=== PATIENT | female | born 1990 | race Caucasian/White ===

== ENCOUNTER 2016-09-03 13:40 | Observation (INO) | payer BC ==
[~2016-09-03] VITALS: Ht 157.5 cm; Wt 52.2 kg
[2016-09-03] MEDS ORDERED: ONDANSETRON HCL 4 MG/2 ML VIAL IV PRN (14:15)
[2016-09-03] MEDS ORDERED: LACTATED RINGER'S 1,000 ML IV ONE (14:15)
[2016-09-03 15:04] LABS: BUN/Creatinine Ratio 10.7; Calcium 8.3 mg/dL (8.5-10.1); Potassium 3.3 mmol/L (3.5-5.1)
[2016-09-03 15:13] LABS: Urine Bilirubin Negative (Negative); Urine Blood Negative /uL (Negative); Urine Color Yellow (Yellow); Urine Glucose 1+ mg/dL (Normal); Urine Ketone Negative (Negative); Urine Nitrite Negative (Negative); Urine RBC 2 /hpf (0 - 4); Urine Squamous Epithelial Cell MOD /hpf (<5); Urine Urobilinogen Normal (Negative); Urine pH 7.5 (5.0-8.0)
[2016-09-03] MEDS ORDERED: POTASSIUM CHL 20 Meq TABLET PO ONE (15:45)
[2016-09-03] MEDS ORDERED: SOD CHL 0.9%/ KCL 20MEQ 1,000 ML IV SCH (16:45)
[2016-09-03] MEDS ORDERED: PROMETHAZINE HCL 12.5 MG RECT SUPP PR ONE (16:45)
[2016-09-03] MEDS ORDERED: LACTATED RINGER'S 1,000 ML IV SCH (17:15)
[2016-09-03] MEDS ORDERED: POTASSIUM CHL 20MEQ/100ML 100 ML IV ONE (17:45)
== END 2016-09-03 20:07 | disposition home or self-care (01) | DRG 781 ==
LOC: LDRP 13:40
PROVIDERS: ADMIT Specialist; ATTEND Specialist
DX: O21.2 Late vomiting of pregnancy (principal); Z3A.24 24 weeks gestation of pregnancy
CPT/HCPCS: 36415; 59025; 80048; 81001; 81002; 96361; 96374; G0378; J2405; J3480; 96365; 96366

== ENCOUNTER → 2016-10-03 | Outpatient (CLI) | payer BC ==
[2016-10-03 10:27] LABS: Basophils # (auto) 0 uL; Basophils % (auto) 0.3 % (0.0-2.0); Eosinophils # (auto) 0.1 uL; Eosinophils % (auto) 1.2 % (0.0-7.0); Hematocrit 38.5 % (36.0-46.0); Hemoglobin 12.9 g/dL (12.2-16.2); Lymphocytes # (auto) 1.7 uL; Lymphocytes % (auto) 18.1 % (10.0-50.0); Mean Corpuscular Hemoglobin 31.3 pg (28.0-32.0); Mean Corpuscular Hgb Conc. 33.5 g/dL (32.0-36.0); Mean Corpuscular Volume 93.2 fL (80.0-100.0); Mean Platelet Volume 8.3 fL (7.4-10.4); Monocytes # (auto) 0.5 uL; Monocytes % (auto) 5.1 % (0.0-12.0); Neutrophils # (auto) 7.2 uL; Neutrophils % (auto) 75.3 % (37.0-80.0); Platelet Count (auto) 250 10^3/uL (140-450); Red Cell Distribution Width 13.9 % (11.6-16.0); White Blood Cell 9.5 10^3/uL (4.4-10.8)
== END | disposition home or self-care (01) ==
LOC: LAB 09:56
PROVIDERS: ATTEND Obstetrics & Gynecology
DX: O99.810 Abnormal glucose complicating pregnancy (principal); Z34.00 Encounter for supervision of normal first pregnancy, unspecified trimester
CPT/HCPCS: 36415; 82951; 85025

== ENCOUNTER → 2016-10-11 | Outpatient (CLI) | payer BC | END | disposition home or self-care (01) | LOC: LAB 15:34 | PROVIDERS: ATTEND Obstetrics & Gynecology | DX: Z34.80 Encounter for supervision of other normal pregnancy, unspecified trimester (principal); R73.09 Other abnormal glucose | CPT/HCPCS: 36415; 83036 ==

== ENCOUNTER → 2016-11-25 | Outpatient (CLI) | payer BC ==
[2016-11-25 13:15] LABS: Basophils # (auto) 0 uL; Basophils % (auto) 0.2 % (0.0-2.0); Eosinophils # (auto) 0.1 uL; Eosinophils % (auto) 0.6 % (0.0-7.0); Hematocrit 40.1 % (36.0-46.0); Hemoglobin 13.5 g/dL (12.2-16.2); Lymphocytes # (auto) 1.8 uL; Lymphocytes % (auto) 18.9 % (10.0-50.0); Mean Corpuscular Hemoglobin 31.1 pg (28.0-32.0); Mean Corpuscular Hgb Conc. 33.8 g/dL (32.0-36.0); Mean Corpuscular Volume 92.3 fL (80.0-100.0); Monocytes # (auto) 0.5 uL; Monocytes % (auto) 5.3 % (0.0-12.0); Neutrophils # (auto) 7.3 uL; Platelet Count (auto) 244 10^3/uL (140-450); Red Cell Distribution Width 13.1 % (11.6-16.0); White Blood Cell 9.7 10^3/uL (4.4-10.8)
== END | disposition home or self-care (01) ==
LOC: LAB 12:36
PROVIDERS: ATTEND Obstetrics & Gynecology
DX: Z34.00 Encounter for supervision of normal first pregnancy, unspecified trimester (principal); Z11.3 Encounter for screening for infections with a predominantly sexual mode of transmission; N76.0 Acute vaginitis
CPT/HCPCS: 36415; 85025; 86592; 87081

== ENCOUNTER 2016-12-01 20:17 | Observation (INO) | payer BC | END 2016-12-01 22:22 | disposition home or self-care (01) | DRG 781 | LOC: LDRP 20:17 | PROVIDERS: ADMIT Specialist; ATTEND Specialist | DX: O26.893 Other specified pregnancy related conditions, third trimester (principal); Z3A.36 36 weeks gestation of pregnancy | CPT/HCPCS: 59025; 76805; 76818; 81002; G0378 ==

== ENCOUNTER 2016-12-05 19:52 | Observation (INO) | payer BC | END 2016-12-05 21:36 | disposition home or self-care (01) | DRG 782 | LOC: LDRP 19:52 | PROVIDERS: ADMIT Obstetrics & Gynecology; ATTEND Obstetrics & Gynecology | DX: O36.5930 Maternal care for other known or suspected poor fetal growth, third trimester, not applicable or unspecified (principal); Z3A.37 37 weeks gestation of pregnancy; O62.9 Abnormality of forces of labor, unspecified | CPT/HCPCS: 59025; 76818; 81002; G0378; 76817 ==

== ENCOUNTER 2016-12-08 08:04 | Observation (INO) | payer BC | END 2016-12-08 09:40 | disposition home or self-care (01) | DRG 782 | LOC: LDRP 08:04 | PROVIDERS: ADMIT Obstetrics & Gynecology; ATTEND Obstetrics & Gynecology | DX: O62.9 Abnormality of forces of labor, unspecified (principal); Z3A.37 37 weeks gestation of pregnancy | CPT/HCPCS: 59025; 76818; 81002; 82948; 82962; G0378 ==

== ENCOUNTER 2016-12-11 11:55 | Observation (INO) | payer BC | END 2016-12-11 13:15 | disposition home or self-care (01) | DRG 998 | LOC: LDRP 11:55 | PROVIDERS: ADMIT Specialist; ATTEND Specialist | DX: O36.5990 Maternal care for other known or suspected poor fetal growth, unspecified trimester, not applicable or unspecified (principal); Z3A.38 38 weeks gestation of pregnancy | CPT/HCPCS: 59025; 76818; 81002; 82962; G0378 ==

== ENCOUNTER 2016-12-14 16:15 | Observation (INO) | payer BC | END 2016-12-14 17:25 | disposition home or self-care (01) | DRG 781 | LOC: LDRP 16:15 | PROVIDERS: ADMIT Specialist; ATTEND Specialist | DX: O24.419 Gestational diabetes mellitus in pregnancy, unspecified control (principal); O36.5930 Maternal care for other known or suspected poor fetal growth, third trimester, not applicable or unspecified; O62.9 Abnormality of forces of labor, unspecified; Z3A.38 38 weeks gestation of pregnancy | CPT/HCPCS: 59025; 76818; 81002; 82962; G0378 ==

== ENCOUNTER 2016-12-18 14:10 | Observation (INO) | payer BC | END 2016-12-18 15:35 | disposition home or self-care (01) | DRG 781 | LOC: LDRP 14:10 | PROVIDERS: ADMIT Specialist; ATTEND Specialist | DX: O24.419 Gestational diabetes mellitus in pregnancy, unspecified control (principal); O36.5930 Maternal care for other known or suspected poor fetal growth, third trimester, not applicable or unspecified; Z3A.39 39 weeks gestation of pregnancy | CPT/HCPCS: 59025; 76818; 81002; G0378 ==

== ENCOUNTER 2016-12-21 19:05 | Observation (INO) | payer BC | END 2016-12-21 20:45 | disposition home or self-care (01) | DRG 998 | LOC: LDRP 19:05 | PROVIDERS: ADMIT Specialist; ATTEND Specialist | DX: O26.899 Other specified pregnancy related conditions, unspecified trimester (principal); Z3A.00 Weeks of gestation of pregnancy not specified | CPT/HCPCS: 59025; 76818; 81002; G0378 ==

== ENCOUNTER 2016-12-25 18:56 | Observation (INO) | payer BC | END 2016-12-25 21:00 | disposition home or self-care (01) | DRG 781 | LOC: LDRP 18:56 | PROVIDERS: ADMIT Obstetrics & Gynecology; ATTEND Obstetrics & Gynecology | DX: O24.419 Gestational diabetes mellitus in pregnancy, unspecified control (principal); O36.5990 Maternal care for other known or suspected poor fetal growth, unspecified trimester, not applicable or unspecified; Z3A.00 Weeks of gestation of pregnancy not specified | CPT/HCPCS: 59025; 76818; 81002; 82948; 82962; G0378 ==

== ENCOUNTER 2016-12-26 20:12 | Inpatient (IN) | payer BC ==
[~2016-12-26] VITALS: Ht 157.5 cm; Wt 62.1 kg
[2016-12-26] MEDS ORDERED: LACT. RINGERS/OXYTOCIN 20UNITS 1,000 ML IV SCH (20:17)
[2016-12-26] MEDS ORDERED: LIDOCAINE 2%HCL (LOCAL ANESTH.) INJ 20ML MDV IJ PRN (20:30)
[2016-12-26] MEDS ORDERED: WITCH HAZEL-GLYCERIN PAD TOP PRN (20:30)
[2016-12-26] MEDS ORDERED: DERMOPLAST 60ML BOTTLE TOP PRN (20:30)
[2016-12-26] MEDS ORDERED: METHYLERGONOVINE MALEATE 0.2 MG/ML AMP IM PRN (20:30)
[2016-12-26] MEDS ORDERED: PHISODERM TOP SOLN 240ML BTL TOP PRN (20:30)
[2016-12-26] MEDS ORDERED: NALBUPHINE HCL 10 MG/1ml INJECTION IV PRN (20:30)
[2016-12-26 20:42] LABS: Urine RBC None Seen /hpf (0 - 4)
[2016-12-26] MEDS: LACTATED RINGER'S 1,000 ML IV SCH (20:49)
[2016-12-26 20:53] LABS: Urine Bilirubin Negative (Negative); Urine Blood Negative /uL (Negative); Urine Color Yellow (Yellow); Urine Glucose Normal (Normal); Urine Ketone TRACE (Negative); Urine Mucus FEW (None Seen); Urine Nitrite Negative (Negative); Urine Squamous Epithelial Cell FEW /hpf (<5); Urine Urobilinogen Normal (Negative); Urine pH 5.5 (5.0-8.0)
[2016-12-26 21:06] LABS: Basophils # (auto) 0 uL; Basophils % (auto) 0.3 % (0.0-2.0); CONDITION Y; Eosinophils # (auto) 0.1 uL; Eosinophils % (auto) 0.7 % (0.0-7.0); Hematocrit 40.8 % (36.0-46.0); Hemoglobin 13.7 g/dL (12.2-16.2); Lymphocytes # (auto) 2.3 uL; Lymphocytes % (auto) 22.6 % (10.0-50.0); Mean Corpuscular Hemoglobin 30.9 pg (28.0-32.0); Mean Corpuscular Hgb Conc. 33.5 g/dL (32.0-36.0); Mean Corpuscular Volume 92.2 fL (80.0-100.0); Mean Platelet Volume 9.7 fL (7.4-10.4); Monocytes # (auto) 0.6 uL; Monocytes % (auto) 6.2 % (0.0-12.0); Neutrophils # (auto) 7.1 uL; Neutrophils % (auto) 70.2 % (37.0-80.0); Platelet Count (auto) 224 10^3/uL (140-450); Red Cell Distribution Width 13.4 % (11.6-16.0); White Blood Cell 10.1 10^3/uL (4.4-10.8)
[2016-12-26 21:09] LABS: Albumin 2.9 g/dL (3.4-5.0); BUN/Creatinine Ratio 8.6; Bilirubin, Total 0.3 mg/dL (0.2-1.0); Calcium 8.7 mg/dL (8.5-10.1); Potassium 3.8 mmol/L (3.5-5.1); Total Protein 6.7 g/dL (6.4-8.2)
[2016-12-26 21:25] LABS: Partial Thromboplastin Time 26.6 sec (22.64-33.71); Prothrombin Time 9.4 sec (9.37-12.3)
[2016-12-26 21:27] LABS: INR 0.86 (0.9-1.15)
[2016-12-27] MEDS ORDERED: PROMETHAZINE HCL 25 MG/ML 1ML IV PRN (01:45)
[2016-12-27] MEDS ORDERED: PROMETHAZINE HCL 25 MG/ML 1ML IV ONE (02:00)
[2016-12-27] MEDS ORDERED: TERBUTALINE SULFATE 1 MG/ML 1ML VIAL SC ONE ×2 (03:31→03:45)
[2016-12-27] MEDS: LACTATED RINGER'S 1,000 ML IV SCH ×2 (14:42→20:17)
[2016-12-27] MEDS ORDERED: NALOXONE HCL 0.4 MG/ML VIAL IV ONE (14:45)
[2016-12-27] MEDS ORDERED: ceFAZolin 1GM/50ML D5W 50 ML IV ONE (14:45)
[2016-12-27] MEDS ORDERED: fentaNYL CITRATE 100 MCG/2 ML VL IV ONE (14:45)
[2016-12-27] MEDS ORDERED: LIDOCAINE 2%HCL (LOCAL ANESTH.) INJ 20ML MDV IJ ONE (14:45)
[2016-12-27] MEDS ORDERED: ePHEDrine SULFATE 50 MG/ML AMP IV ONE (14:45)
[2016-12-27] MEDS ORDERED: fentaNYL W ROPIVACAINE 150 ML EPI SCH (14:45)
[2016-12-27] MEDS ORDERED: LIDOCAINE HCL 2 %PF INJ 10ML AMP IJ ONE (14:45)
[2016-12-27] MEDS ORDERED: ePHEDrine SULFATE 50 MG/ML AMP ONE (16:54)
[2016-12-27] MEDS ORDERED: SODIUM CHL 0.9% 250 ML ONE (16:54)
[2016-12-27] MEDS ORDERED: fentaNYL CITRATE 100 MCG/2 ML VL ONE (16:54)
[2016-12-27] MEDS ORDERED: SODIUM BICARBONATE INFANT SYR 10 ML SYRG IV ONE (16:54)
[2016-12-27] MEDS ORDERED: OXYTOCIN 10 UNIT/ML 10ML VIAL ONE (16:54)
[2016-12-27] MEDS ORDERED: LIDOCAINE 2%HCL (LOCAL ANESTH.) INJ 20ML MDV ONE (16:54)
[2016-12-27] MEDS ORDERED: MIDAZOLAM HCL 1MG/1ML-2 ML VIAL ONE (16:54)
[2016-12-27] MEDS ORDERED: MORPHINE SULF(PF) 0.5MG/ML 10ML VIAL ONE (16:54)
[2016-12-27] MEDS ORDERED: ceFAZolin 1GM VL ONE (16:54)
[2016-12-27] MEDS ORDERED: MORPHINE SULF INJ 2 MG/ML SYRINGE 1ML IV PRN (18:00)
[2016-12-27] MEDS ORDERED: ONDANSETRON HCL 4 MG/2 ML VIAL IV PRN (18:00)
[2016-12-27] MEDS ORDERED: HYDROmorphone HCL 2 MG/ML VL IV PRN ×2 (18:15→18:30)
[2016-12-27] MEDS ORDERED: KETOROLAC TROMETH 30 MG/ML 1ML VIAL IV PRN (18:15)
[2016-12-27] MEDS ORDERED: LACT. RINGERS/OXYTOCIN 20UNITS 1,000 ML IV SCH (18:15)
[2016-12-27] MEDS ORDERED: diphenhdrAMINE HCL 50 MG/1 ML VL IV PRN (18:30)
[2016-12-27] MEDS ORDERED: NALOXONE HCL 0.4 MG/ML VIAL IV PRN (18:30)
[2016-12-27] MEDS ORDERED: KETOROLAC TROMETH 30 MG/ML 1ML VIAL IV ONE (18:30)
[2016-12-27] MEDS ORDERED: ONDANSETRON HCL 4 MG/2 ML VIAL IV ONE (18:30)
[2016-12-27] MEDS ORDERED: OXYTOCIN 10UNIT/ML 1ML VIAL ONE (19:14)
[2016-12-27 19:30] VITALS: BP 117/61
[2016-12-27 20:00] VITALS: BP 111/60
[2016-12-27 21:00] VITALS: BP 115/55
[2016-12-27 22:00] VITALS: BP 105/50
[2016-12-27] MEDS ORDERED: ceFAZolin 1GM/50ML D5W 50 ML IV SCH (22:00)
[2016-12-27 22:28] LABS: Basophils # (auto) 0 uL; CONDITION Y; Eosinophils # (auto) 0 uL; Hematocrit 36.6 % (36.0-46.0); Hemoglobin 12.2 g/dL (12.2-16.2); Lymphocytes # (auto) 1.3 uL; Mean Corpuscular Hemoglobin 30.8 pg (28.0-32.0); Mean Corpuscular Hgb Conc. 33.3 g/dL (32.0-36.0); Mean Corpuscular Volume 92.4 fL (80.0-100.0); Mean Platelet Volume 9.8 fL (7.4-10.4); Monocytes # (auto) 0.7 uL; Monocytes % (auto) 4.1 % (0.0-12.0); Neutrophils # (auto) 14.4 uL; Neutrophils % (auto) 87.9 % (37.0-80.0); Platelet Count (auto) 204 10^3/uL (140-450); Red Cell Distribution Width 13.6 % (11.6-16.0); White Blood Cell 16.4 10^3/uL (4.4-10.8)
[2016-12-27 23:15] VITALS: BP 104/57
[2016-12-28] VITALS (9 sets, daily range): BP systolic 90–120; BP diastolic 48–68
[2016-12-28] MEDS: ceFAZolin 1GM/50ML D5W 50 ML IV SCH ×3 (01:30→17:33)
[2016-12-28] MEDS: LACTATED RINGER'S 1,000 ML IV SCH (02:13)
[2016-12-28 07:45] LABS: Basophils # (auto) 0 uL; CONDITION Y; Eosinophils # (auto) 0 uL; Eosinophils % (auto) 0.1 % (0.0-7.0); Hematocrit 33.2 % (36.0-46.0); Hemoglobin 11.4 g/dL (12.2-16.2); Lymphocytes # (auto) 1.7 uL; Lymphocytes % (auto) 11.9 % (10.0-50.0); Mean Corpuscular Hemoglobin 31.3 pg (28.0-32.0); Mean Corpuscular Hgb Conc. 34.3 g/dL (32.0-36.0); Mean Corpuscular Volume 91.3 fL (80.0-100.0); Mean Platelet Volume 9.4 fL (7.4-10.4); Monocytes # (auto) 0.3 uL; Monocytes % (auto) 2.3 % (0.0-12.0); Neutrophils # (auto) 12.1 uL; Neutrophils % (auto) 85.7 % (37.0-80.0); Platelet Count (auto) 180 10^3/uL (140-450); Red Cell Distribution Width 13.8 % (11.6-16.0); SUSPECT SEE PRINTOUT; White Blood Cell 14.1 10^3/uL (4.4-10.8)
[2016-12-28] MEDS: KETOROLAC TROMETH 30 MG/ML 1ML VIAL IV PRN ×2 (08:47→14:50)
[2016-12-28] MEDS: HYDROcodone-ACET 5/325MG TAB PO PRN (21:18)
[2016-12-28] MEDS: DOCUSATE SOD 100 MG CAP PO SCH (22:17)
[2016-12-29] VITALS: BP 99/54
[2016-12-29 00:01] VITALS: BP 99/54
[2016-12-29] MEDS: ceFAZolin 1GM/50ML D5W 50 ML IV SCH (01:09)
[2016-12-29] MEDS: SIMETHICONE 80 MG CHEWABLE TABLET PO SCH ×5 (01:13→22:10)
[2016-12-29] MEDS: LACTATED RINGER'S 1,000 ML IV SCH ×2 (02:13→12:17)
[2016-12-29] MEDS: HYDROcodone-ACET 5/325MG TAB PO PRN ×5 (02:13→22:14)
[2016-12-29 04:00] VITALS: BP 98/59
[2016-12-29] MEDS: DOCUSATE SOD 100 MG CAP PO SCH ×2 (07:25→22:10)
[2016-12-29 07:30] VITALS: BP 101/63
[2016-12-29] MEDS ORDERED: ceFAZolin 1GM/50ML D5W 50 ML IV SCH (09:30)
[2016-12-29] MEDS: IBUPROFEN 800 MG TAB PO PRN ×2 (11:08→19:00)
[2016-12-29 12:30] VITALS: BP 112/63
[2016-12-29 20:02] VITALS: BP 129/74
[2016-12-30 00:20] VITALS: BP 121/69
[2016-12-30] MEDS: HYDROcodone-ACET 5/325MG TAB PO PRN ×2 (03:00→06:56)
[2016-12-30] MEDS: IBUPROFEN 800 MG TAB PO PRN ×2 (03:00→11:30)
[2016-12-30 03:30] VITALS: BP 137/83
[2016-12-30] MEDS: SIMETHICONE 80 MG CHEWABLE TABLET PO SCH ×2 (05:50→12:00)
[2016-12-30] MEDS: DOCUSATE SOD 100 MG CAP PO SCH (06:56)
[2016-12-30 08:00] VITALS: BP 123/80
[2016-12-30 12:00] VITALS: BP 120/70
== END 2016-12-30 14:30 | disposition home or self-care (01) | DRG 765 ==
LOC: LDRP 20:12 → OBSVTOIN 20:12 → LDRP 12-27 17:34
PROVIDERS: ADMIT Obstetrics & Gynecology; ATTEND Obstetrics & Gynecology
PROC: 10D00Z1 Extraction of Products of Conception, Low, Open Approach (ICD-10-PCS; principal; 2016-12-27 17:18)
DX: O48.0 Post-term pregnancy (principal); O36.5930 Maternal care for other known or suspected poor fetal growth, third trimester, not applicable or unspecified; O43.193 Other malformation of placenta, third trimester; O76 Abnormality in fetal heart rate and rhythm complicating labor and delivery; O24.429 Gestational diabetes mellitus in childbirth, unspecified control; O77.9 Labor and delivery complicated by fetal stress, unspecified; Z37.0 Single live birth; Z3A.40 40 weeks gestation of pregnancy
CPT/HCPCS: 36415; 59025; 62282; 80053; 80307; 81001; 81002; 82948; 82962; 85025; 85610; 85730; 86850; 86900; 86901; 94762; 96365; 96366; 96375; G0378; J0690; J1885; J2250; J2590; J3010

== ENCOUNTER 2017-09-19 15:07 | Emergency (ER) | payer BC, OTHER ==
[~2017-09-19] VITALS: Ht 157.5 cm; Wt 47.6 kg
[2017-09-19 15:12] VITALS: BP 122/89
[2017-09-19] MEDS ORDERED: cefTRIAXone SOD 1,000 MG VL IM ONE (15:30)
[2017-09-21 10:32] LABS: Hepatitis B Surface Antibody Positive
[2017-09-21 10:44] LABS: Hepatitis B Surface Antigen Negative (Negative)
== END 2017-09-19 15:55 | disposition home or self-care (01) ==
LOC: ER 15:07
DX: S61.231A Puncture wound without foreign body of left index finger without damage to nail, initial encounter (principal); W27.3XXA Contact with needle (sewing), initial encounter; Y93.89 Activity, other specified; Y99.8 Other external cause status; Y92.89 Other specified places as the place of occurrence of the external cause
CPT/HCPCS: 36415; 86703; 86706; 86803; 87340; 96372; 99284; J0696

== ENCOUNTER → 2018-04-16 | Outpatient (CLI) | payer OTHER ==
[2018-04-16 14:06] LABS: Hepatitis B Surface Antibody Positive
== END | disposition home or self-care (01) ==
LOC: LAB 10:35
PROVIDERS: ATTEND Preventive Medicine Preventive Medicine/Occupational Environmental Medicine
DX: S61.231A Puncture wound without foreign body of left index finger without damage to nail, initial encounter (principal); X58.XXXA Exposure to other specified factors, initial encounter; Y93.89 Activity, other specified; Y92.89 Other specified places as the place of occurrence of the external cause; Y99.8 Other external cause status
CPT/HCPCS: 36415; 86703; 86706; 86803; 87340